=== PATIENT | female | born 1980 | race Caucasian/White ===

== ENCOUNTER 2022-06-15 19:51 | Emergency (ER) | payer SELFPAY ==
[~2022-06-15] VITALS: Ht 157.5 cm; Wt 70.0 kg
[2022-06-15] MEDS ORDERED: LORAZEPAM 1MG TABLET PO ONE (21:15)
[2022-06-15 23:15] VITALS: BP 116/74
== END 2022-06-15 23:25 | disposition home or self-care (01) ==
LOC: ER 19:51
DX: F41.0 Panic disorder [episodic paroxysmal anxiety] (principal); F43.9 Reaction to severe stress, unspecified; F41.9 Anxiety disorder, unspecified; R00.0 Tachycardia, unspecified
CPT/HCPCS: 93005; 99283